=== PATIENT | female | born 1980 | race Caucasian/White ===

== ENCOUNTER 2016-04-23 11:33 | Emergency (ER) ==
--- NOTE | 2016-04-23 11:46 | PROVIDER DOCUMENTATION ---
HPI-General Adult - General Source: patient - History of Present Illness -Gen Adult Nature of Presenting Problems: pt is a 36 y/o f that presents with anxiety, cp, n/v, and epigastric pain since last pm that got worse today. history of gastritis. Location of Pain/Injury: reports: chest, abdomen Pain Radiation: reports: no radiation Quality of Pain: reports: sharp Severity: reports: mild Onset/Duration: reports: abrupt, last night Timing: reports: still present, intermittent Context/Activities at Onset: reports: none Modifying Factors: improves with: nothing Associated Symptoms: reports: chest pain, nausea, shortness of breath, vomiting . denies: back/neck pain, diarrhea, dizziness, EENT symptoms, fever/chills, genitourinary problems Similar Symptoms Previously?: No Recently seen or treated by another doctor?: No <Doroteo Alfonso - Last Filed: 04/23/16 14:14> <Kamaljit Hendrickson - Last Filed: 04/23/16 16:07> - General Chief Complaint: Nausea/Vomiting Stated Complaint: anxiety, cp, n/v Time Seen by Provider: 04/23/16 11:43 Allergies/Adverse Reactions: Patient Allergies Allergy/AdvReac Type Severity Reaction Status Date / Time No Known Allergies Allergy Verified 09/08/15 17:55 Home Medications: Fludrocortisone [Florinef] 0.1 mg PO BID 08/24/15 Albuterol Sulfate Inhaler [Ventolin Hfa] 2 puff INH Q6H PRN PRN 09/28/15 Azithromycin [Zithromax Z-Sin] 250 mg PO DIRECTED 09/28/15 Review of Systems - Adult - REVIEW OF SYSTEMS - ADULT Constitutional: denies: chills, fever Eyes: denies: decreased vision, blurred vision, double vision Ears, Nose, Mouth & Throat: denies: ear pain, sinus problem, throat pain, throat swelling Cardiovascular: reports: chest pain. denies: palpitations, syncope Respiratory: reports: shortness of breath. denies: cough, wheezing Gastrointestinal: reports: nausea, vomiting. denies: abdominal pain, diarrhea Genitourinary: reports: no symptoms reported Musculoskeletal: reports: no symptoms reported Integumentary: denies: itching, rash Neurological: denies: dizziness/vertigo, headache/migraines, syncope Psychiatric: reports: anxiety. denies: depression Endocrine: reports: no symptoms reported Hematologic/Lymphatic: reports: no symptoms reported Allergic/Immunologic: reports: no symptoms reported All Other Systems: Reviewed and Negative <Doroteo Alfonso - Last Filed: 04/23/16 14:14> Past History - Adult - PAST MEDICAL HISTORY-ADULT Review of Records: reports: Old Records Reviewed, Nursing Assessment Review, Medications Reviewed Cardiovascular: reports: murmur (pt reports hx heart murmur) Respiratory: reports: asthma Psychiatric: reports: anxiety - PRIOR SURGERIES/PROCEDURES Surgical/Procedure History: reports: , hernia repair, other (tubal) - IMMUNIZATION STATUS Childhood Immunizations: See Nurse Assessment Flu Vaccine: See Nurse Assessment - FAMILY HISTORY Family History: reviewed, not pertinent - SOCIAL HISTORY Smoking: cigarettes, less than 1 pack/day Living Situation: family <Doroteo Alfonso - Last Filed: 04/23/16 14:14> Physical Exam-General - PHYSICAL EXAM-ADULT Initial Vital Signs Reviewed: Yes - CONSTITUTIONAL General Appearance: alert, mild distress, anxious - EYES Eyes: PERRL/EOMI, pink conjunctivae - HEAD, EARS, NOSE, MOUTH & THROAT HENMT: normocephalic/atraumatic, moist mucous membranes, normal ENT inspection - NECK Neck: full range of motion, normal inspection - RESPIRATORY Respiratory: no respiratory distress, no accessory muscle use, increased rate ( hyperventalation) - CARDIOVASCULAR Cardiovascular: no edema, no gallop, no JVD - GASTROINTESTINAL (ABDOMEN) Abdominal Exam: normal bowel sounds, no organomegaly, no pulsatile mass, tenderness (epigastric). negative: distended, guarding, rigid, rebound - MUSCULOSKELETAL Extremity: normal range of motion, non-tender, normal inspection, no pedal edema - SKIN Integumentary: normal color, warm/dry - NEUROLOGIC Neurologic: grossly normal, no motor/sensory deficits - PSYCHIATRIC Psych/Mental Status: oriented x 3. negative: anxious <Doroteo Alfonso - Last Filed: 04/23/16 14:14> Progress - REASSESSMENT Reassessment #1 Time Reassessed: 14:13 Status: improving Reassessment Comment: feeling better, some abdominal soreness but not as tender as first examined - XRAY 1 XRAY Study: Chest Impression: Normal XRAY Interpretation: negative <Doroteo Alfonso - Last Filed: 04/23/16 14:14> - PLAN OF CARE/RESULTS Progress/Plan/Lab Results: Vital Signs Temp Pulse Resp BP Pulse Ox 04/23/16 14:12 51 L 18 99 04/23/16 13:05 98.4 F 52 L 18 132/053 99 04/23/16 11:34 97.9 F 73 18 125/84 100 No Known Allergies Allergy (Verified 09/08/15 17:55) Fludrocortisone [Florinef] 0.1 mg PO BID 08/24/15 Albuterol Sulfate Inhaler [Ventolin Hfa] 2 puff INH Q6H PRN PRN 09/28/15 Azithromycin [Zithromax Z-Sin] 250 mg PO DIRECTED 09/28/15 Paroxetine HCl [Paxil] 20 mg PO DAILY #30 tablet 09/28/15 Albuterol Sulfate Inhaler [Ventolin Hfa] 2 puff INH FA0HCUU #1 inhaler 02/12/16 Azithromycin [Zithromax Z-Sin] 250 mg PO DIRECTED #1 pkg 02/12/16 Benzonatate [Tessalon] 100 mg PO TID PRN PRN #30 capsule 02/12/16 Methylprednisolone [Medrol Dosepak] 4 mg PO DIRECTED #1 package 02/12/16 Prochlorperazine [Compazine] 10 mg PO TID PRN PRN #30 tablet 04/23/16 Dietary Diet NPO Start Sun Apr 23 114 Laboratory 04/23/16 04/23/16 04/23/16 13:40 13:40 12:03 WBC RBC Hgb Hct MCV MCH MCHC RDW Std Deviation Plt Count MPV Immature Gran % (Auto) Neut % (Auto) Lymph % (Auto) [place] % (Auto) Eos % (Auto) Baso % (Auto) Immature Gran # (Auto) Neut # (Auto) Lymph # (Auto) [place] # (Auto) Eos # (Auto) Baso # (Auto) Specimen Type ARTERIAL Sample Site R BRACHIAL pH 7.53 H pCO2 24 L pO2 136 H HCO3 24.1 Base Excess -0.9 Oxyhemoglobin 93.0 L ABG O2 Sat (Calculated) 18.4 ABG O2 Saturation 98.7 ABG Carboxyhemoglobin 4.60 H ABG Methemoglobin 1.3 Kory Test YES A-a O2 Difference -16.0 Total Hemoglobin 13.9 Lactate 1.40 Blood Gas Modality ROOM AIR FiO2 % 21.0 Sodium Potassium Chloride Carbon Dioxide Anion Gap BUN Creatinine Estimated GFR/1.73 m2 BUN/Creatinine Ratio Glucose Calculated Osmolality Calcium Total Bilirubin AST ALT Alkaline Phosphatase Total Protein Albumin Globulin Albumin/Globulin Ratio Amylase Lipase Urine Source CLEAN CATCH Urine Color [place] Urine Clarity SL. CLOUDY A Urine pH 7.0 Ur Specific [place] 1.015 Urine Protein 1+(30 mg/dL) A Urine Ketones 2+(Moderate) A Urine Blood 3+ A Urine Nitrite NEGATIVE Urine Bilirubin NEGATIVE Urine Urobilinogen NORMAL Urine Microscopic RBC 10-20 A Urine WBC TRACE A Urine Microscopic WBC 10-20 A Ur Epithelial Cells >10 A Urine Bacteria 2+ Urine Glucose NEGATIVE Urine Opiates Screen NONE DETECTED Ur Oxycodone Screen NONE DETECTED Urine Methadone Screen NONE DETECTED Ur Barbituates Screen NONE DETECTED Ur Tricyclics Screen NONE DETECTED Ur Phencyclidine Scrn NONE DETECTED Ur Amphetamines Screen NONE DETECTED U Methamphetamines Scrn NONE DETECTED Urine MDMA Screen NONE DETECTED U Benzodiazepines Scrn NONE DETECTED Urine Cocaine Screen NONE DETECTED U Cannabinoids Screen PRESUMPTIVE POSITIVE A 04/23/16 04/23/16 11:38 11:38 WBC 16.13 H RBC 4.57 Hgb 13.8 Hct 41.7 MCV 91.2 MCH 30.2 MCHC 33.1 RDW Std Deviation 14.0 Plt Count 243 MPV 12.2 H Immature Gran % (Auto) 0.2 Neut % (Auto) 72.5 Lymph % (Auto) 18.4 L [place] % (Auto) 7.0 Eos % (Auto) 1.6 Baso % (Auto) 0.3 Immature Gran # (Auto) 0.03 Neut # (Auto) 11.70 H Lymph # (Auto) 2.96 [place] # (Auto) 1.13 H Eos # (Auto) 0.26 Baso # (Auto) 0.05 Specimen Type Sample Site pH pCO2 pO2 HCO3 Base Excess Oxyhemoglobin ABG O2 Sat (Calculated) ABG O2 Saturation ABG Carboxyhemoglobin ABG Methemoglobin Kory Test A-a O2 Difference Total Hemoglobin Lactate Blood Gas Modality FiO2 % Sodium 138 Potassium 3.7 Chloride 103 Carbon Dioxide 24 L Anion Gap 11 BUN 10 Creatinine 0.8 Estimated GFR/1.73 m2 > 60 BUN/Creatinine Ratio 13 Glucose 130 H Calculated Osmolality 276 Calcium 9.5 Total Bilirubin 0.60 AST 12 ALT 8 L Alkaline Phosphatase 57 Total Protein 7.5 Albumin 4.7 Globulin 3.0 Albumin/Globulin Ratio 2.0 Amylase 37 Lipase 18 Urine Source Urine Color Urine Clarity Urine pH Ur Specific [place] Urine Protein Urine Ketones Urine Blood Urine Nitrite Urine Bilirubin Urine Urobilinogen Urine Microscopic RBC Urine WBC Urine Microscopic WBC Ur Epithelial Cells Urine Bacteria Urine Glucose Urine Opiates Screen Ur Oxycodone Screen Urine Methadone Screen Ur Barbituates Screen Ur Tricyclics Screen Ur Phencyclidine Scrn Ur Amphetamines Screen U Methamphetamines Scrn Urine MDMA Screen U Benzodiazepines Scrn Urine Cocaine Screen U Cannabinoids Screen Orders Category Date Time Status Saline Loc DIRECTED Care 04/23/16 11:41 Active NPO Diet 04/23/16 11:41 Active ABDOMEN FLAT/UPRIGHT [RAD] Stat Exams 04/23/16 13:19 Completed CHEST-PORTABLE [RAD] Stat Exams 04/23/16 11:42 Completed ABG [RESP] Routine Lab 04/23/16 12:03 Completed AMYLASE [CHEM] Stat Lab 04/23/16 11:38 Completed CBC WITH ELECTRONIC DIFF [HEME] Stat Lab 04/23/16 11:38 Completed COMPREHENSIVE METABOLIC PANEL [CHEM] Stat Lab 04/23/16 11:38 Completed LIPASE [CHEM] Stat Lab 04/23/16 11:[address] W/POSS RFLX CULT [URINALYSIS] Stat Lab 04/23/16 13:40 Completed URINE CULTURE [RM] Routine Lab 04/23/16 13:56 Re[address] UR[address] DRUG SCREEN [address] Stat Lab 04/23/16 13:40 Completed Lido/Kaur Alk/Al&mg Hydrox [G.i. Cocktail] Med 04/23/16 14:13 Discontinued 30 ml PO NOW ONE Prochlorperazine [Compazine] Med 04/23/16 11:47 Discontinued 10 mg IV NOW ONE - REASSESSMENT Reassessment #2 Time Reassessed: 16:00 Status: improving Reassessment Comment: feeling better, will d/chome,pt has tenderness to chest wall withpalpation <Kamaljit Hendrickson - Last Filed: 04/23/16 16:07> Departure <Doroteo Alfonso - Last Filed: 04/23/16 14:14> - Departure Time of Disposition Order: 16:05 Certified Medical Emergency: Emergent <Kamaljit Hendrickson - Last Filed: 04/23/16 16:07> - Departure DIAGNOSIS: Dyspepsia, Chest wall pain Disposition: HOME 01 Condition: Stable Additional Instructions: ED Follow Up Instructions: You have been treated by a care provider in the Emergency Department. These instructions are being provided to you so you can have an understanding of how to care for yourself upon discharge. Upon discharge from the Emergency Department, you are responsible for making arrangements for follow-up care by a physician of your choice. Take all prescribed medications as directed. Return to the Emergency Department immediately for any new or worsening symptoms. You may call the Physician Referral phone number at [phone] to obtain a list of Physicians who are taking new patients. Referrals: Martin Henriquez MD [Primary Care Provider] - Call for Appoint. 1-2days Instructions: Chest Wall Pain, [id number] Attestation - Scribe Verification/Attestation Scribe:: Kamaljit Hendrickson Acting as Scribe for:: Doroteo Alfonso Scribe documention review:: This chart was documented by a scribe and accurately reflects the service the provider performed and the decisions made by the provider. <Kamaljit Hendrickson - Last Filed: 04/23/16 16:07> Physician Attestation - Physician Attestation I, the provider, attest to the following statement:: Doroteo Alfonso Physician documentation Attestation:: This documentation recorded by the scribe accurately reflects the service I personally performed and the decisions made by me. <Kamaljit Hendrickson - Last Filed: 04/23/16 16:07>
[2016-04-23] MEDS ORDERED: COMPAZINE IV ONE (11:47)
[2016-04-23 11:50] LABS: MANUAL DIFF NEEDED? NO
[2016-04-23 11:53] LABS: BASO% 0.3 % (0.0-0.8); EOS# 0.26 X1000 (0.0-0.7); EOS% 1.6 % (0.0-10.0); HEMATOCRIT 41.7 % (37.0-47.0); HEMOGLOBIN 13.8 g/dL (12.0-16.0); IMM GRAN# 0.03 X1000 (0.0-0.04); IMM GRAN% 0.2 % (0.0-0.5); LYMPH# 2.96 X1000 (1.2-3.4); LYMPH% 18.4 % (20.5-51.1); MCH 30.2 PG (27-31); MCHC 33.1 g/dL (33-37); MCV 91.2 FL (81-99); MONO# 1.13 X1000 (0.11-0.59); MPV 12.2 FL (7.4-10.4); NEUT% 72.5 % (42.2-75.2); PLT 243 X1000 (130-400); RBC 4.57 XMIL (4.2-5.4)
[2016-04-23 12:16] LABS: AGAP 11; ALBUMIN 4.7 g/dL (3.5-5.0); ALKALINE PHOSPHATASE 57 U/L (32-104); AMYLASE 37 U/L (20-200); BUN 10 mg/dL (8-22); CALCIUM 9.5 mg/dL (8.8-10.2); CHLORIDE 103 mmol/L (98-107); COSMO 276; GOT 12 U/L (10-30); GPT 8 U/L (10-36); LIPASE 18 U/L (13-60); POTASSIUM 3.7 mmol/L (3.5-5.1); SODIUM 138 mmol/L (136-145); TCO2 24 mmol/L (25-35); TOTAL PROTEIN 7.5 g/dL (6.3-8.3)
[2016-04-23 12:17] LABS: BE -0.9 mmoll (-3.0-3.0); BLOOD TYPE ARTERIAL; DRAW SITE R BRACHIAL; METHB 1.3 % (0.0-1.5); O2(CT) 18.4 mL/dL (15.0-23.0); PCO2(98.6) 24 mmHg (35-45); PO2(98.6) 136 mmHg (60-100); SAMPLE BLOOD; SAO2 98.7 % (95.0-100.0); THB 13.9 g/dL (11.5-17.4); pH(98.6) 7.53 (7.35-7.45)
[2016-04-23 12:32] LABS: ALLEN TEST YES; MODALITY ROOM AIR
[2016-04-23 13:43] LABS: URINE SOURCE CLEAN CATCH
[2016-04-23 13:52] LABS: UR AMPHETAMINES QUAL NONE DETECTED (NONE DETECT); UR BARBITUATES QUAL NONE DETECTED (NONE DETECT); UR BENZODIAZEPIN QUAL NONE DETECTED (NONE DETECT); UR CANNABINOIDS QUAL PRESUMPTIVE POSITIVE (NONE DETECT); UR COCAINE QUAL NONE DETECTED (NONE DETECT); UR MDMA QUAL NONE DETECTED (NONE DETECT); UR METHADONE QUAL NONE DETECTED (NONE DETECT); UR METHAMPHETAMINE QUAL NONE DETECTED (NONE DETECT); UR OPIATES QUAL NONE DETECTED (NONE DETECT); UR OXYCODONE QUAL NONE DETECTED (NONE DETECT); UR PCP QUAL NONE DETECTED (NONE DETECT); UR TCA QUAL NONE DETECTED (NONE DETECT)
[2016-04-23 13:55] LABS: BILIRUBIN URINE NEGATIVE (NEGATIVE); BLOOD URINE 3+ (NEGATIVE); CLARITY SL. CLOUDY (CLEAR); COLOR AMBER; GLUCOSE URINE NEGATIVE (NEGATIVE); LEUKOCYTES URINE TRACE (NEGATIVE); NITRITE URINE NEGATIVE (NEGATIVE); PROTEIN URINE 1+(30 mg/dL) mg/dL (NEGATIVE); SP GRAVITY URINE 1.015; UROBILINOGEN URINE NORMAL
[2016-04-23 13:56] LABS: URINE CULTURE PL NEEDED? YES; URINE EPITHELIAL CELLS >10 /HPF (<10)
--- NOTE | 2016-04-23 14:02 | Diag Imaging Result Document ---
PROCEDURE NAME: CHEST-PORTABLE - 04/23/2016 SINGLE FRONTAL RADIOGRAPH OF THE CHEST: COMPARISON: 02/12/2016. FINDINGS: The lungs are grossly clear. There is no discrete pleural fluid collection or pneumothorax. The cardiomediastinal silhouette and upper airway are grossly unremarkable. IMPRESSION: No evidence of acute chest pathology.
[2016-04-23] MEDS ORDERED: G.I. COCKTAIL PO ONE (14:13)
--- NOTE | 2016-04-23 14:29 | Diag Imaging Result Document ---
PROCEDURE NAME: ABDOMEN FLAT/UPRIGHT - 04/23/2016 FLAT AND UPRIGHT RADIOGRAPH THE ABDOMEN AND PELVIS: COMPARISON: 03/28/2014. FINDINGS: There are unremarkable bowel gas and stool patterns. There is no evidence of bowel obstruction. There is no evidence of large volume free abdominal gas. There is no definite organomegaly. IMPRESSION: No evidence of acute abdominal pathology identified.
[2016-04-23 16:16] VITALS: BP 136/084
== END 2016-04-23 16:26 | disposition home or self-care (01) ==
LOC: P.ED 11:33
DX: R10.13 Epigastric pain (principal); R07.89 Other chest pain; R11.2 Nausea with vomiting, unspecified; R06.02 Shortness of breath; F41.9 Anxiety disorder, unspecified; R06.4 Hyperventilation; F17.210 Nicotine dependence, cigarettes, uncomplicated; Z79.899 Other long term (current) drug therapy; Z79.51 Long term (current) use of inhaled steroids
CPT/HCPCS: 36415; 71010; 74020; 80053; 81001; 82150; 82805; 83690; 85025; 87088; 96374; J0780